=== PATIENT | female | born 1990 | race Caucasian/White ===

== ENCOUNTER 2021-04-07 11:31 | Emergency (ER) | payer OTHER ==
[~2021-04-07] VITALS: Ht 162.6 cm; Wt 68.0 kg
[2021-04-07 11:43] VITALS: BP 133/88
[2021-04-07] MEDS ORDERED: PERIDEX 0.12%473 M1 SWISH&SPIT (11:57)
[2021-04-07] MEDS ORDERED: AMOXICILLIN 50500 MG PO (11:57)
== END 2021-04-07 12:00 | disposition home or self-care (01) ==
LOC: M.ERS 11:31
DX: K08.89 Other specified disorders of teeth and supporting structures (principal)